=== PATIENT | male | born 1950 | race Caucasian/White ===

== ENCOUNTER 2016-04-04 08:56 | Inpatient (IN) | payer MEDICARE, BC ==
[~2016-04-04] VITALS: Ht 175.3 cm; Wt 88.9 kg
[2016-04-04] MEDS ORDERED: OPTIRAY 350 100 ML VIAL HMH IV ONE (08:57)
[2016-04-04] MEDS ORDERED: MORPHINE 4 MG/ML SYR ONE (09:46)
[2016-04-04] MEDS ORDERED: ONDANSETRON 4 MG VIAL ONE (09:46)
[2016-04-04] MEDS ORDERED: SODIUM CHLORIDE 0.9% 1,000 ML ONE ×2 (09:46→12:36)
[2016-04-04] MEDS ORDERED: DILAUDID 1 MG/ML AMP ONE (13:01)
[2016-04-04] MEDS ORDERED: ALPRAZOLAM 0.25 MG TAB PO PRN (13:35)
[2016-04-04] MEDS ORDERED: PROMETHAZINE 25 MG/ML VIAL IV PRN (13:35)
[2016-04-04] MEDS ORDERED: ACETAMINOPHEN 325 MG TAB PO PRN (13:35)
[2016-04-04] MEDS ORDERED: ALU/MAG/SIM 30 ML UDC PO PRN (13:35)
[2016-04-04] MEDS ORDERED: ONDANSETRON 4 MG VIAL IV PUSH PRN (13:35)
[2016-04-04] MEDS ORDERED: LACTULOSE SOLN 20GM/30ML UDC PO PRN (13:35)
[2016-04-04] MEDS ORDERED: SALINE FLUSH 10 ML FLUSH PRN (13:35)
[2016-04-04 14:46] VITALS: BP_SYST 140; RESP 20; TEMP 98
[2016-04-04 14:47] VITALS: Ht 175.3 cm; Wt 88.9 kg
[2016-04-04] MEDS: SODIUM CHLORIDE 0.9% 1,000 ML IV SCH (14:51)
[2016-04-04] MEDS: DILAUDID 1 MG/ML AMP IV PRN ×2 (18:05→19:06)
[2016-04-04 19:28] VITALS: BP_SYST 123; RESP 20; TEMP 98.2
[2016-04-04] MEDS: SALINE FLUSH 10 ML FLUSH SCH (20:33)
[2016-04-05] VITALS (7 sets, daily range): BP systolic 99–136; RESP 18–20; TEMP 97.9–99
[2016-04-05] MEDS: DILAUDID 1 MG/ML AMP IV PRN ×5 (00:32→23:45)
[2016-04-05] MEDS: SODIUM CHLORIDE 0.9% 1,000 ML IV SCH ×3 (00:36→19:49)
[2016-04-05] MEDS: SODIUM CHLORIDE 0.9% FLUSH BAG 500 ML IV SCH (05:48)
[2016-04-05] MEDS: SALINE FLUSH 10 ML FLUSH SCH ×2 (08:00→19:43)
[2016-04-05] MEDS: ENOXAPARIN 30 MG/0.3 ML SYR SUBQ SCH (09:37)
[2016-04-06 03:43] VITALS: BP_SYST 113; RESP 18; TEMP 98.1
[2016-04-06] MEDS: SODIUM CHLORIDE 0.9% FLUSH BAG 500 ML IV SCH (06:00)
[2016-04-06] MEDS: SODIUM CHLORIDE 0.9% 1,000 ML IV SCH ×2 (06:12→16:58)
[2016-04-06] MEDS: DILAUDID 1 MG/ML AMP IV PRN ×4 (06:12→21:14)
[2016-04-06 07:09] VITALS: BP_SYST 146; RESP 18; TEMP 97.9
[2016-04-06] MEDS: SALINE FLUSH 10 ML FLUSH SCH ×2 (07:19→19:34)
[2016-04-06] MEDS: ENOXAPARIN 30 MG/0.3 ML SYR SUBQ SCH (08:49)
[2016-04-06 11:26] VITALS: BP_SYST 135; RESP 18; TEMP 97.9
[2016-04-06 15:04] VITALS: BP_SYST 128; RESP 18; TEMP 98.1
[2016-04-06 19:28] VITALS: BP_SYST 148; RESP 18; TEMP 97.7
[2016-04-06 23:03] VITALS: BP_SYST 120; RESP 18; TEMP 98
[2016-04-07] MEDS: SODIUM CHLORIDE 0.9% 1,000 ML IV SCH (02:30)
[2016-04-07] MEDS: SODIUM CHLORIDE 0.9% FLUSH BAG 500 ML IV SCH (03:06)
[2016-04-07 04:47] VITALS: BP_SYST 138; RESP 18; TEMP 98.2
[2016-04-07 07:33] VITALS: BP_SYST 144; RESP 18; TEMP 97.6
[2016-04-07] MEDS: SALINE FLUSH 10 ML FLUSH SCH ×2 (07:44→21:19)
[2016-04-07] MEDS: ENOXAPARIN 30 MG/0.3 ML SYR SUBQ SCH (08:52)
[2016-04-07 11:13] VITALS: BP_SYST 143; RESP 18; TEMP 98.3
[2016-04-07 16:26] VITALS: BP_SYST 163; RESP 18; TEMP 98.1
[2016-04-07 19:25] VITALS: BP_SYST 148; RESP 18; TEMP 98.1
[2016-04-07 23:23] VITALS: BP_SYST 116; RESP 18; TEMP 98.1
[2016-04-08 03:59] VITALS: BP_SYST 125; RESP 18; TEMP 97.8
[2016-04-08] MEDS: SODIUM CHLORIDE 0.9% FLUSH BAG 500 ML IV SCH (06:00)
[2016-04-08 07:25] VITALS: BP_SYST 125; RESP 18; TEMP 98
[2016-04-08] MEDS: SALINE FLUSH 10 ML FLUSH SCH (08:00)
[2016-04-08] MEDS: ENOXAPARIN 30 MG/0.3 ML SYR SUBQ SCH (09:00)
[2016-04-08 11:24] VITALS: BP_SYST 132; RESP 20; TEMP 97.8
== END 2016-04-08 11:41 | disposition home or self-care (01) | DRG 440 ==
LOC: ENRESERVTM → ENRESERVDT → ER 08:56 → ENPENDDIS 13:50 → EMR 13:50 → 4NT 14:23
PROVIDERS: ADMIT Internal Medicine Nephrology; ATTEND Internal Medicine Nephrology
CPT/HCPCS: 36415; 74177; 80053; 80061; 80069; 81001; 83690; 85025; 96361; 96374; 96375

== ENCOUNTER 2016-04-09 19:43 | Observation (INO) | payer MEDICARE, BC ==
[~2016-04-09] VITALS: Ht 175.3 cm; Wt 86.7 kg
[2016-04-09] MEDS ORDERED: DIPHENHYDRAMINE 50 MG/ML VIAL ONE (20:26)
[2016-04-09] MEDS ORDERED: METHYLPRED SOD SUCC 125 MG/2 ML VIAL ONE (20:26)
[2016-04-09] MEDS ORDERED: FAMOTIDINE 20 MG INJ ONE (20:26)
[2016-04-09] MEDS ORDERED: DIPHENHYDRAMINE 50 MG/ML VIAL IV PRN (22:15)
[2016-04-09] MEDS: FAMOTIDINE 20 MG INJ IV SCH (23:25)
[2016-04-09] MEDS: METHYLPRED SOD SUCC 125 MG/2 ML VIAL IV SCH (23:25)
[2016-04-09 23:45] VITALS: BP_SYST 138; RESP 18; TEMP 98.1; Ht 175.3 cm; Wt 86.7 kg
[2016-04-10 03:30] VITALS: BP_SYST 138; RESP 18; TEMP 98
[2016-04-10 07:46] VITALS: BP_SYST 124; RESP 18; TEMP 97.6
[2016-04-10] MEDS: METHYLPRED SOD SUCC 125 MG/2 ML VIAL IV SCH ×2 (08:41→15:22)
[2016-04-10] MEDS: FAMOTIDINE 20 MG INJ IV SCH (08:41)
[2016-04-10] MEDS ORDERED: ASPIRIN 81 MG CHEW TAB PO SCH (09:15)
[2016-04-10 12:17] VITALS: BP_SYST 135; RESP 18; TEMP 97.5
[2016-04-10 15:10] VITALS: BP_SYST 126; RESP 18; TEMP 97.8
[2016-04-10 18:31] VITALS: BP_SYST 126; RESP 18; TEMP 97.8
== END 2016-04-10 18:18 | disposition home or self-care (01) ==
LOC: ENRESERVTM → ENRESERVDT → ER 19:43 → EMR 21:31 → ENPENDDIS 21:31 → PCU2 23:03
PROVIDERS: ADMIT Internal Medicine; ATTEND Internal Medicine
CPT/HCPCS: 96374 ×2; 96375 ×2; 99223; 99283; G0378; J2930